=== PATIENT | female | born 1990 | race Caucasian/White ===

== ENCOUNTER 2022-07-24 11:55 | Inpatient (IN) | payer BC ==
[2022-07-24] MEDS ORDERED: Ondansetron 4 MG/2 ML SDV IVPUSH PRN (12:17)
[2022-07-24] MEDS ORDERED: Lidocaine 1% 50 ML MDV INJECT PRN (12:17)
[2022-07-24] MEDS ORDERED: Nalbuphine HCl 10 MG/ 1ML Amp IVPUSH PRN (12:17)
[2022-07-24] MEDS ORDERED: Sodium Chloride 0.9% 10 ML Syringe FLUSH PRN (12:17)
[2022-07-24] MEDS ORDERED: Oxytocin/Lactated Ringers 10 UNIT/1,000 ML BAG IV SCH ×2 (12:30)
[2022-07-24] MEDS ORDERED: Misoprostol 25 MCG (1/4 of 100 MCG) Tab VAG SCH (13:00)
[2022-07-24 13:02] LABS: ESTIMATED GFR 102 mL/min (>60)
[2022-07-24] MEDS ORDERED: diphenhydrAMINE 50 MG/ML SDV IVPUSH PRN (13:41)
[2022-07-24] MEDS ORDERED: ePHEDrine 50 MG/ML SDV IVPUSH PRN (13:41)
[2022-07-24] MEDS ORDERED: fentaNYL 100 MCG/2 ML SDV EPIDUR PRN (13:41)
[2022-07-24] MEDS ORDERED: Bupivacaine/fentaNYL/NS 100 ML Bag EPIDUR PRN (13:41)
[2022-07-24] MEDS: Misoprostol 25 MCG (1/4 of 100 MCG) Tab VAG SCH ×3 (13:55→22:18)
[2022-07-25] MEDS: Lactated Ringers 1,000 ML IV SCH ×3 (01:05→11:47)
[2022-07-25] MEDS: Misoprostol 25 MCG (1/4 of 100 MCG) Tab VAG SCH (02:00)
[2022-07-25] MEDS: Sodium Chloride 0.9% 10 ML Syringe FLUSH SCH ×2 (04:06→22:14)
[2022-07-25] MEDS ORDERED: Methylergonovine 0.2 MG/1 ML Amp IM STA (09:52)
[2022-07-25] MEDS ORDERED: Acetaminophen 325 MG Tab PO PRN (10:05)
[2022-07-25] MEDS ORDERED: Witch Hazel Medicated Pads 40/Jar TOP PRN (10:05)
[2022-07-25] MEDS ORDERED: Benzocaine/Menthol 20%-0.5% Spray 78 GM Cannister TOP PRN (10:05)
[2022-07-25] MEDS ORDERED: Bupivacaine 0.25% 10 ML SDV ONE (14:00)
[2022-07-25] MEDS: Docusate Sodium 100 MG Cap PO PRN (14:12)
[2022-07-25] MEDS: Ibuprofen 600 MG Tab PO PRN (14:12)
[2022-07-26] MEDS: Ibuprofen 600 MG Tab PO PRN ×2 (06:21→15:44)
[2022-07-26] MEDS ORDERED: Measles, Mumps & Rubella Vaccine 0.5 ML SDV SUBCUT ONE (09:30)
[2022-07-26] MEDS: Docusate Sodium 100 MG Cap PO PRN (15:44)
[2022-07-27] MEDS ORDERED: Measles, Mumps & Rubella Vaccine 0.5 ML SDV SUBCUT ONE (09:00)
[2022-07-27] MEDS ORDERED: Citric Acid/Sodium Citrate Solution 30 ML Cup ONE (13:37)
[2022-07-27] MEDS ORDERED: Metoclopramide 10 MG/2 ML SDV ONE (13:38)
== END 2022-07-27 10:37 | disposition home or self-care (01) | DRG 560 ==
LOC: JD.OBCHECK 11:55 → JD.OB 11:56 → JD.OBCHECK 12:17 → JD.OB 12:17 → OBSVTOIN 07-25 09:24 → JD.OB 07-25 09:25 → JD.ZCENSUS 07-27 07:00 → JD.OB 07-27 15:09
PROVIDERS: ADMIT Obstetrics & Gynecology; ATTEND Obstetrics & Gynecology
PROC: 10D07Z6 Extraction of Products of Conception, Vacuum, Via Natural or Artificial Opening (ICD-10-PCS; principal; 2022-07-25)
PROC: 3E0P7VZ Introduction of Hormone into Female Reproductive, Via Natural or Artificial Opening (ICD-10-PCS; 2022-07-25)
PROC: 0KQM0ZZ Repair Perineum Muscle, Open Approach (ICD-10-PCS; 2022-07-25)
PROC: 0UQMXZZ Repair Vulva, External Approach (ICD-10-PCS; 2022-07-25)
PROC: 3E0234Z Introduction of Serum, Toxoid and Vaccine into Muscle, Percutaneous Approach (ICD-10-PCS; 2022-07-25)
PROC: 3E0234Z Introduction of Serum, Toxoid and Vaccine into Muscle, Percutaneous Approach (ICD-10-PCS; 2022-07-27)
DX: O48.0 Post-term pregnancy (principal); Z37.0 Single live birth; Z3A.41 41 weeks gestation of pregnancy; O13.4 Gestational [pregnancy-induced] hypertension without significant proteinuria, complicating childbirth; O63.1 Prolonged second stage (of labor); O75.81 Maternal exhaustion complicating labor and delivery; O72.1 Other immediate postpartum hemorrhage; O71.82 Other specified trauma to perineum and vulva; O70.1 Second degree perineal laceration during delivery; O26.893 Other specified pregnancy related conditions, third trimester; Z67.11 Type A blood, Rh negative; Z23 Encounter for immunization
CPT/HCPCS: 01967; 36415; 36430; 51701; 59025; 59409; 82565; 82570; 83615; 84156; 84450; 84460; 84520; 84550; 85025; 85027; 85461; 86592; 86850; 86870; 86900; 86901; A9270-GY; J2210; J2590; J2790; J3010; J3490; J7120

== ENCOUNTER 2024-07-18 23:26 | Inpatient (IN) | payer BC ==
[2024-07-19] MEDS ORDERED: Lidocaine 1% 50 ML MDV INJECT PRN (00:37)
[2024-07-19] MEDS ORDERED: Lactated Ringers 1,000 ML IV SCH (00:45)
[2024-07-19] MEDS ORDERED: Oxytocin/0.9 % Sodium Chloride 30 UNIT/500 ML BAG IV SCH (00:45)
[2024-07-19] MEDS: Oxytocin/0.9 % Sodium Chloride 30 UNIT/500 ML BAG IV SCH (01:33)
[2024-07-19] MEDS ORDERED: Acetaminophen 325 MG Tab PO PRN (03:42)
[2024-07-19] MEDS: Ibuprofen 600 MG Tab PO SCH (04:02)
[2024-07-19] MEDS: Benzocaine/Menthol 20%-0.5% Spray 78 GM Cannister TOP PRN (04:03)
[2024-07-19] MEDS: Witch Hazel Medicated Pads 40/Jar TOP PRN (04:04)
[2024-07-19 05:41] LABS: BASOPHILS PERCENT AUTO 0.2 % (0.0-1.0); HEMATOCRIT 33.5 % (37.0-47.0); HEMOGLOBIN 11.8 gm/dl (12.0-16.0); IMMATURE GRAN ABSOLUTE AUTO 0.06 K/mm3 (0.00-0.05); IMMATURE GRAN PERCENT AUTO 0.4 % (0.0-0.4); LYMPHOCYTES ABSOLUTE AUTO 0.8 K/mm3 (1.0-4.8); LYMPHOCYTES PERCENT AUTO 5.6 % (24.0-44.0); MEAN CORPUSCULAR HEMOGLOBIN 31.9 pg (28.0-32.0); MEAN CORPUSCULAR HGB CONC 35.2 g/dl (32.0-36.0); MEAN CORPUSCULAR VOLUME 90.5 fl (83.0-99.0); MEAN PLATELET VOLUME 10.1 fl (9.4-12.3); MONOCYTES ABSOLUTE AUTO 0.7 K/mm3 (0.0-0.8); NEUTROPHILS ABSOLUTE AUTO 12.3 K/mm3 (1.8-7.7); NEUTROPHILS PERCENT AUTO 88.8 % (41.0-71.0); PLATELET COUNT,PLT 147 K/mm3 (150-400)
[2024-07-19] MEDS: Docusate Sodium 100 MG Cap PO PRN (08:32)
== END 2024-07-20 10:00 | disposition home or self-care (01) | DRG 560 ==
LOC: JD.OBCHECK 23:26 → JD.OB 23:35 → JD.OBCHECK 07-19 00:37 → JD.OB 07-19 00:54 → OBSVTOIN 07-19 01:29 → JD.OB 07-19 01:30
PROVIDERS: ADMIT Obstetrics & Gynecology; ATTEND Obstetrics & Gynecology
PROC: 10E0XZZ Delivery of Products of Conception, External Approach (ICD-10-PCS; principal; 2024-07-19)
PROC: 3E0334Z Introduction of Serum, Toxoid and Vaccine into Peripheral Vein, Percutaneous Approach (ICD-10-PCS; 2024-07-19)
PROC: 0HQ9XZZ Repair Perineum Skin, External Approach (ICD-10-PCS; 2024-07-19)
DX: O48.0 Post-term pregnancy (principal); Z37.0 Single live birth; Z3A.40 40 weeks gestation of pregnancy; O26.893 Other specified pregnancy related conditions, third trimester; Z67.11 Type A blood, Rh negative; O98.32 Other infections with a predominantly sexual mode of transmission complicating childbirth; A60.00 Herpesviral infection of urogenital system, unspecified; O13.4 Gestational [pregnancy-induced] hypertension without significant proteinuria, complicating childbirth; O70.0 First degree perineal laceration during delivery; O71.82 Other specified trauma to perineum and vulva
CPT/HCPCS: 36415; 59025; 59409; 85025; 85461; 86592; 86850; 86900; 86901; A9270-GY; J2790; J7999